=== PATIENT | male | born 2000 | race Caucasian/White ===

== ENCOUNTER 2019-05-19 19:57 | Emergency (ER) | payer MEDICAID ==
[2019-05-19] MEDS ORDERED: HYDROcodone/Acetaminophen 10/325 mg Tablet ONE (20:54)
[2019-05-19] MEDS ORDERED: Ketorolac Tromethamine 30 MG/ML VIAL ONE (20:54)
--- NOTE | 2019-05-19 21:26 | CT ---
CTA CHEST WITH CONTRAST: 05/19/19 Axial tomograms obtained with multiplanar reconstruction and 3D postprocessing following CT angio pro tocol. INDICATIONS: Recent fall, tachycardia with chest pain and shortness of breath. FINDINGS: The pulmonary arteries are suboptimally opacified; however, opacification is adequate. There is no e vidence of pulmonary embolus seen to the segmental level. The lungs are clear. No infiltrate or effusion. Mediastinum is unremarkable. Upper abdomen unremarkable. IMPRESSION: 1. No evidence of pulmonary embolus to the segmental level. 2. No acute lung process. POS: [facility]
== END 2019-05-19 22:50 | disposition home or self-care (01) ==
LOC: ERS 19:57
DX: S01.511A Laceration without foreign body of lip, initial encounter (principal); E86.0 Dehydration; M25.561 Pain in right knee; I10 Essential (primary) hypertension; F31.9 Bipolar disorder, unspecified; F90.9 Attention-deficit hyperactivity disorder, unspecified type; F17.210 Nicotine dependence, cigarettes, uncomplicated; Z79.899 Other long term (current) drug therapy; W19.XXXA Unspecified fall, initial encounter
CPT/HCPCS: 71275; 93005; 96361; 96374; J1885